=== PATIENT | female | born 1950 | race Caucasian/White ===

== ENCOUNTER → 2017-04-29 | Outpatient (CLI) | payer OTHER ==
[~2017-04-29] MED LIST: B COTAB7 PO; BACL10TA PO; BUSP10 PO; DICY10CA13 PO; FISH1000 PO; GABA600T PO; GLUCTAB4 PO; LEVEMIR SC; LEVO50TA4 PO; NOVORP2 SQ; TAB-TAB PO; TOPI15CA PO; VITA250L PO; Z.0.OXYGENDME EACH NARE
[2017-04-29 08:01] LABS: BLOOD GAS BASE EXCESS -3.7 mmol/L (-2-2); BLOOD GAS CARBOXYHEMOGLOBIN 2.2 % (0-4); BLOOD GAS HCO3 21 mmol/L (22-26); BLOOD GAS METHEMOGLOBIN 0.8 % (0-2); BLOOD GAS O2 HGB SATURATION 91 % (90-100); BLOOD GAS OXYGEN CONTENT 11.9 Vol % (12.0-20.0); BLOOD GAS PCO2 41 mmHG (38-42); BLOOD GAS PO2 77 mmHG (61-120); BLOOD GAS TOTAL HGB 9.3 G/DL (12.0-16.0); CRITICAL VALUE NO; OXYGEN DEVICE ROOM AIR; TEMP CORR TO 98.6
[2017-04-29 08:02] LABS: DRAW SITE RT RADIAL; FIO2 21 %; NUMBER OF ARTERIAL PUNCTURES 1; STAT NO; ULNAR PULSE PRESENT
--- NOTE | 2017-05-01 10:11 | RSPPFT ---
DATE OF PROCEDURE: 04/29/17 COMMENTS: Spirometry shows FVC of 2.2 at 74% of predicted, FEV1 of 1.1 at 48%, FEV1/FVC ratio is decreased. Flow is decreased at FEF 25, FEF 50, FEF 75 and FEF 25-75. There is a good response to acutely inhaled bronchodilator treatment. Lung volumes show residual volume is increased. TLC is normal. Diffusion capacity is severely decreased. Flow volume loop indicates an obstructive pattern. Room air arterial blood gases show pH of 7.3, PCO2 of 41, PO2 of 77, BiCarb of 21 and O2 Saturation at 91%. IMPRESSION: 1. Moderately severe obstructive lung disease 2. Good response to acutely inhaled bronchodilator treatment. 3. Lung volumes show hyperinflation 4. Severe loss in diffusion capacity. 5. Blood gases show normal oxygenation and mild metabolic acidosis.
== END ==
LOC: PHRSP 07:39
PROVIDERS: ATTEND Specialist
DX: J44.9 Chronic obstructive pulmonary disease, unspecified (principal)
CPT/HCPCS: 36600; 82805; 94060; 94726; 94729